=== PATIENT | female | born 1995 | race American Indian/Alaskan Native ===

== ENCOUNTER 2017-11-20 17:15 | Emergency (ER) | payer SELFPAY ==
[2017-11-20 18:05] VITALS: BP 130/65
[2017-11-20] MEDS ORDERED: AUGMENTIN 875 MG PO ONE (21:33)
[2017-11-20] MEDS ORDERED: MOTRIN PO ONE (21:34)
--- NOTE | 2017-11-20 21:38 | Emergency Department Report ---
ED Animal Bite HPI - General Chief Complaint: Animal Bite Stated Complaint: DOG BIT ON RIGHT ARM Time Seen by Provider: 11/20/17 21:28 Source: patient Mode of arrival: Ambulatory Limitations: No Limitations - History of Present Illness Initial Comments: 21-year-old -Indian female comes in reports that her friend's dog bit her. She reports it was unprovoked. Patient reports that the dog is up-to- date on all shots. Patient reports that her right forearm is driving and also has a scratch. Patient reports the pains of 6 out of 10. She has no allergies to medications currently takes no medications on a daily basis. No past medical history. Complaint: animal bite -: This evening Right: Forearm Animal: dog Animal Control Notified: No Description: household pet Mechanism: bite, scratch Pain Description: other (throbbing) Context: unprovoked, playing with animal Associated Symptoms: erythema - Related Data Patient Tetanus UTD: Yes Previous Rx's Medication Instructions Recorded Last Taken Type Amoxicillin/K Clav Tab [Augmentin 1 each PO Q12HR #20 tablet 11/20/17 Unknown Rx 875MG TAB] Ibuprofen [Motrin 600 MG tab] 600 mg PO Q8H #15 tablet 11/20/17 Unknown Rx Allergies Allergy/AdvReac Type Severity Reaction Status Date / Time No Known Allergies Allergy Unverified 11/20/17 18:05 ED Review of Systems ROS: Stated complaint: DOG BIT ON RIGHT ARM Other details as noted in HPI Constitutional: denies: chills, fever Skin: other (dog bite wounds) ED Past Medical Hx - Past Medical History Previous Medical History?: No Additional medical history: RLL FX - Surgical History Past Surgical History?: No - Social History Smoking Status: Never Smoker Substance Use Type: None - Medications Home Medications: Home Medications Medication Instructions Recorded Confirmed Last Taken Type Amoxicillin/K Clav Tab [Augmentin 1 each PO Q12HR #20 tablet 11/20/17 Unknown Rx 875MG TAB] Ibuprofen [Motrin 600 MG tab] 600 mg PO Q8H #15 tablet 11/20/17 Unknown Rx ED Physical Exam - General Limitations: No Limitations General appearance: alert, in no apparent distress - Head Head exam: Present: atraumatic, normocephalic - Eye Eye exam: Present: EOMI - ENT ENT exam: Present: mucous membranes moist - Neurological Exam Neurological exam: Present: alert, oriented X3 - Psychiatric Psychiatric exam: Present: normal affect, normal mood - Skin Skin exam: Present: abrasion - Expanded Skin Exam Expanded Type of lesion: Present: bite/sting (puncture wound to the right forearm), other (scratches to the right forearm) Description of rash: Present: erythematous ED Course Vital Signs 11/20/17 18:03 Temperature 99.1 F Pulse Rate 88 Respiratory 16 Rate Blood Pressure 130/65 O2 Sat by Pulse 99 Oximetry Critical care attestation.: If time is entered above; I have spent that time in minutes in the direct care of this critically ill patient, excluding procedure time. ED Disposition Clinical Impression: Dog bite of arm Qualifiers: Encounter type: initial encounter Laterality: right Qualified Code(s): S41.151A - Open bite of right upper arm, initial encounter; W54.0XXA - Bitten by dog, initial encounter Disposition: DC- TO HOME OR SELFCARE Is pt being admited?: No Does the pt Need Aspirin: No Condition: Stable Additional Instructions: Please complete antibiotics as prescribed. Pain medication as needed follow-up to primary care provider. Prescriptions: Amoxicillin/K Clav Tab [Augmentin 875MG TAB] 1 each PO Q12HR #20 tablet Ibuprofen [Motrin 600 MG tab] 600 mg PO Q8H #15 tablet Referrals: PRIMARY CARE, [Primary Care Provider] - 3-5 Days Forms: Work/School Release Form(ED)
--- NOTE | 2017-11-20 22:46 | XRay Report ---
FINAL REPORT PROCEDURE: XR FOREARM RT TECHNIQUE: RIGHT forearm radiographs, AP and lateral views. CPT 34550 HISTORY: dog bite puncture wound COMPARISON: No prior studies are available for comparison. FINDINGS: Fracture (s) and/or Dislocation(s): None . Joint space(s): Normal . Soft tissues: Normal . Bone mineralization: Normal . Foreign bodies: None . IMPRESSION: Normal Examination
== END 2017-11-20 23:35 | disposition home or self-care (01) ==
LOC: ED 17:15
DX: S41.151A Open bite of right upper arm, initial encounter (principal); W54.0XXA Bitten by dog, initial encounter; Y93.89 Activity, other specified; Y99.8 Other external cause status; Y92.89 Other specified places as the place of occurrence of the external cause
CPT/HCPCS: 36415; 84703